=== PATIENT | female | born 1955 | race Two or more races ===

== ENCOUNTER 2020-11-15 09:15 | Outpatient (REF) | payer BC, SELFPAY ==
[2020-11-15 11:16] LABS: Glucose Urine UA NEG (NEG); Leukocyte Esterase Urine 1+ (NEG); Nitrite Urine NEG (NEG); PH 5.5 (5.0-8.0); Specific Gravity - Urine >= 1.030 (1.005-1.025); Urine Blood 1+ (NEG); Urine Ketones NEG (NEG); Urine Protein NEG (NEG-TRACE)
[2020-11-15 11:18] LABS: Appearance Urine HAZY; Color Urine YELLOW
[2020-11-15 11:38] LABS: Mucus Urine 2+ /LPF; Squamous Epithelial Cell Urine 1+ /LPF
[2020-11-15 11:52] LABS: Hematocrit 42.9 % (37-47); Hemoglobin 13.7 g/dl (12.0-16.0); Mean Corpuscular HGB Conc 31.9 g/dl (31.0-35.0); Mean Corpuscular Hemoglobin 29.2 pg (27.0-33.0); Mean Corpuscular Volume 91.5 fL (80-98); Mean Platelet Volume 9.8 fL (9.4-12.3); Platelet Count 269 X10*3/uL (160-400); Red Blood Count 4.69 X10*6/uL (4.20-5.50); Red Cell Distribution Width 12.6 % (11.0-16.0)
[2020-11-15 11:53] LABS: Alanine Aminotransferase 25 U/L (0-31); Albumin Level 4.4 g/dL (3.5-5.0); Alkaline Phosphatase 89 U/L (39-117); Anion Gap 14 (12-20); Aspartate Amino Transferase 18 U/L (5-31); Bilirubin Total 0.8 mg/dL (0.0-1.0); Blood Urea Nitrogen 13 mg/dL (9-16); Calcium 9.3 mg/dL (8.4-10.2); Carbon Dioxide 26 mmol/L (22-29); Chloride 106 mmol/L (96-108); Cholesterol 223 mg/dL; Estimated Glomerular Filt Rate > 60; Glucose Fasting 88 mg/dL (60-99); HDL Cholesterol 71 mg/dL; LDL Cholesterol Calculated 133 mg/dl; Potassium 4.1 mmol/L (3.3-5.1); Sodium 142 mmol/L (135-145); Total Protein 6.9 g/dL (6.5-8.0); Triglycerides 99 mg/dL
[2020-11-15 12:20] LABS: Thyroid Stimulating Hormone 0.79 uIU/mL (0.32-4.0)
== END 2020-11-15 09:16 | disposition home or self-care (01) ==
LOC: HO.HMGCLDS 09:15
PROVIDERS: PCP Internal Medicine; Visit Provider Internal Medicine
DX: Z00.00 Encounter for general adult medical examination without abnormal findings (principal); E78.2 Mixed hyperlipidemia; R79.89 Other specified abnormal findings of blood chemistry
CPT/HCPCS: 36415; 80053; 80061; 81001; 84443; 85027

== ENCOUNTER 2021-09-17 09:17 | Outpatient (REF) | payer BC, SELFPAY ==
[2021-09-17 11:40] LABS: Hematocrit 42.5 % (37.0-47.0); Hemoglobin 13.6 g/dl (12.0-16.0); Mean Corpuscular Hemoglobin 29.6 pg (27.0-33.0); Mean Corpuscular Volume 92.4 fL (80.0-98.0); Mean Platelet Volume 10.2 fL (9.4-12.3); Platelet Count 254 X10*3/uL (160-400); Red Cell Distribution Width 12.4 % (11.0-16.0); White Blood Count 6.4 X10*3/uL (4.8-10.8)
[2021-09-17 12:04] LABS: Alanine Aminotransferase 40 U/L (0-31); Albumin Level 4.3 g/dL (3.5-5.0); Alkaline Phosphatase 84 U/L (39-117); Anion Gap 11 (12-20); Aspartate Amino Transferase 24 U/L (5-31); Bilirubin Total 0.5 mg/dL (0.0-1.0); Blood Urea Nitrogen 13 mg/dL (9-16); Calcium 9.4 mg/dL (8.4-10.2); Carbon Dioxide 29 mmol/L (22-29); Chloride 106 mmol/L (96-108); Cholesterol 201 mg/dL; Estimated Glomerular Filt Rate > 60; Glucose Fasting 95 mg/dL (60-99); HDL Cholesterol 56 mg/dL; LDL Cholesterol Calculated 117 mg/dl; Potassium 4.1 mmol/L (3.3-5.1); Sodium 142 mmol/L (135-145); Total Protein 6.8 g/dL (6.5-8.0); Triglycerides 144 mg/dL
[2021-09-17 12:11] LABS: TSH reflex Free T4 0.89 uIU/mL (0.32-4.0)
== END 2021-09-17 09:18 | disposition home or self-care (01) ==
LOC: HO.HMGCLDS 09:17
PROVIDERS: Visit Provider Internal Medicine
DX: Z00.00 Encounter for general adult medical examination without abnormal findings (principal); E78.5 Hyperlipidemia, unspecified
CPT/HCPCS: 36415; 80053; 80061; 84443; 85027

== ENCOUNTER 2022-04-29 08:32 | Outpatient (REF) | payer BC, SELFPAY ==
[2022-04-29 11:59] LABS: Alanine Aminotransferase 49 U/L (0-31); Albumin Level 4.4 g/dL (3.5-5.0); Alkaline Phosphatase 92 U/L (39-117); Anion Gap 14 (12-20); Aspartate Amino Transferase 31 U/L (5-31); Bilirubin Total 0.6 mg/dL (0.0-1.0); Blood Urea Nitrogen 12 mg/dL (9-16); Calcium 9.7 mg/dL (8.4-10.2); Carbon Dioxide 26 mmol/L (22-29); Chloride 106 mmol/L (96-108); Cholesterol 229 mg/dL; Estimated Glomerular Filt Rate > 60; Glucose Fasting 100 mg/dL (60-99); HDL Cholesterol 60 mg/dL; LDL Cholesterol Calculated 134 mg/dl; Potassium 4.3 mmol/L (3.3-5.1); Sodium 142 mmol/L (135-145); Triglycerides 175 mg/dL
== END 2022-04-29 08:33 | disposition home or self-care (01) ==
LOC: HO.HMGCLDS 08:32
PROVIDERS: PCP Internal Medicine; Visit Provider Internal Medicine
DX: K21.9 Gastro-esophageal reflux disease without esophagitis (principal); E78.5 Hyperlipidemia, unspecified
CPT/HCPCS: 36415; 80053; 80061

== ENCOUNTER 2022-10-26 09:06 | Outpatient (REF) | payer MEDICARE, BC, SELFPAY ==
[2022-10-26 12:00] LABS: Alanine Aminotransferase 40 U/L (0-31); Albumin Level 4.5 g/dL (3.5-5.0); Alkaline Phosphatase 95 U/L (39-117); Anion Gap 12 (12-20); Aspartate Amino Transferase 26 U/L (5-31); Bilirubin Total 0.6 mg/dL (0.0-1.0); Blood Urea Nitrogen 17 mg/dL (9-16); Calcium 9.4 mg/dL (8.4-10.2); Carbon Dioxide 27 mmol/L (22-29); Chloride 108 mmol/L (96-108); Cholesterol 188 mg/dL; Estimated Glomerular Filt Rate > 60; Glucose Fasting 101 mg/dL (60-99); HDL Cholesterol 63 mg/dL; LDL Cholesterol Calculated 103 mg/dl; Potassium 4.6 mmol/L (3.3-5.1); Sodium 142 mmol/L (135-145); Total Protein 6.8 g/dL (6.5-8.0); Triglycerides 113 mg/dL
[2022-10-26 12:17] LABS: TSH reflex Free T4 1.05 uIU/mL (0.32-4.0); Vitamin D 25-OH Total 78.4 ng/mL (>30)
[2022-10-26 12:20] LABS: Estimated Average Glucose 108 mg/dL; Hemoglobin A1c % 5.4 %
== END 2022-10-26 09:07 | disposition home or self-care (01) ==
LOC: HO.HMGCLDS 09:06
PROVIDERS: PCP Internal Medicine; Visit Provider Internal Medicine
DX: R73.9 Hyperglycemia, unspecified (principal); E78.5 Hyperlipidemia, unspecified
CPT/HCPCS: 36415; 80053; 80061; 82306; 83036; 84443

== ENCOUNTER 2023-04-22 08:54 | Outpatient (REF) | payer MEDICARE, SELFPAY ==
[2023-04-22 11:30] LABS: MANUAL DIFF FLAG NO
[2023-04-22 11:47] LABS: Basophils Absolute Auto 0.1 X10*3/uL (0.0-0.2); Eosinophils Absolute Auto 0.2 X10*3/uL (0.0-0.4); Eosinophils Percent Auto 2.7 % (0-4); Hematocrit 43.4 % (37.0-47.0); Hemoglobin 14.2 g/dl (12.0-16.0); Imm Gran Abs Auto 0.01 X10*3/uL (0.00-0.03); Imm Gran Pct Auto 0.1 % (0.0-0.4); Lymphocytes Absolute Auto 3.1 X10*3/uL (1.2-4.9); Lymphocytes Percent Auto 46.3 % (20-40); Mean Corpuscular HGB Conc 32.7 g/dl (31.0-35.0); Mean Corpuscular Hemoglobin 29.3 pg (27.0-33.0); Mean Corpuscular Volume 89.7 fL (80.0-98.0); Monocytes Absolute Auto 0.5 X10*3/uL (0.1-1.2); Monocytes Percent Auto 8.1 % (2-11); Neutrophils Absolute Auto 2.8 x10*3/uL (2.0-8.3); Neutrophils Percent Auto 41.8 % (45-73); Platelet Count 264 X10*3/uL (160-400); Red Blood Count 4.84 X10*6/uL (4.20-5.50); Red Cell Distribution Width 12.7 % (11.0-16.0); White Blood Count 6.7 X10*3/uL (4.8-10.8)
[2023-04-22 12:23] LABS: Alanine Aminotransferase 61 U/L (0-31); Albumin Level 4.2 g/dL (3.5-5.0); Alkaline Phosphatase 90 U/L (39-117); Anion Gap 15 (12-20); Aspartate Amino Transferase 32 U/L (5-31); Bilirubin Total 0.4 mg/dL (0.0-1.0); Blood Urea Nitrogen 18 mg/dL (9-16); Calcium 9.8 mg/dL (8.4-10.2); Carbon Dioxide 24 mmol/L (22-29); Chloride 106 mmol/L (96-108); Estimated Glomerular Filt Rate > 60; Glucose Fasting 97 mg/dL (60-99); Potassium 4.3 mmol/L (3.3-5.1); Sodium 141 mmol/L (135-145); Total Protein 7.1 g/dL (6.5-8.0)
[2023-04-22 12:28] LABS: TSH reflex Free T4 1.05 uIU/mL (0.32-4.0)
[2023-04-22 12:50] LABS: Estimated Average Glucose 105 mg/dL; Hemoglobin A1c % 5.3 % (<6.0)
== END 2023-04-22 08:55 | disposition home or self-care (01) ==
LOC: HO.HMGCLDS 08:54
PROVIDERS: PCP Internal Medicine; Visit Provider Internal Medicine
DX: R73.9 Hyperglycemia, unspecified (principal); F41.9 Anxiety disorder, unspecified; F32.9 Major depressive disorder, single episode, unspecified; E78.5 Hyperlipidemia, unspecified; K21.9 Gastro-esophageal reflux disease without esophagitis
CPT/HCPCS: 36415; 80053; 83036; 84443; 85025

== ENCOUNTER 2023-05-03 11:14 | Outpatient (AMB) | payer MEDICARE, SELFPAY ==
[2023-05-03 11:39] VITALS: BP 122/72; PULSE 65; O2SAT 99; BMI 24.5
--- NOTE | 2023-05-03 11:39 | A.OFFPC_ITS ---
Vital Signs 05/03/23 11:39 Height 5 ft 4 in Weight 143 lb BMI 24.5 BP 122/72 Blood Pressure Location Lt brachial Position Sitting Pulse 65 Pulse Source Pulse Oximeter Pulse Oximetry (%) 99 Oxygen Delivery Method Room Air Intake Visit Reasons: 6 month Follow up Hyperlipidemia Intake Note: Pt is here today for her 6mo. f/u Allergies No Known Allergies Allergy (Verified 05/03/23 11:39) Medication List - Last Reconciled 05/03/23 by Esther Ashley MD ezetimibe-simvastatin 10-40 mg 1 tab PO DAILY fluoxetine 10 mg PO DAILY omeprazole 20 mg PO DAILY valacyclovir 2,000 mg (2 x 1 gram) PO Q12H Tobacco use date assessed: 05/03/23 Fall risk assessment: No Falls in past year Last assessed Fall Risk: 05/03/23 Dental Screening Dental Screen Date: 05/03/23 Did you have a dental visit in the last 12 months?: Yes Did you have a dental problem in the last 6 months where you did not have access to dental care?: No Was dental information given to patient?: Patient has dentist HPI 6 month Follow up Hyperlipidemia HPI Details Patient presents for follow-up of hyperlipidemia. She reports episodes of nausea lightheadedness with physical exertion. She denies chest pain palpitations diaphoresis. [facility] Medical History Annual physical exam Anxiety and depression Chronic GERD Colon cancer screening Hyperlipidemia Surgical History H/O colonoscopy Family History Father Stomach cancer Mother Diabetes Hypertension Bone cancer Social History Housing: House Patient Tobacco Use Status: Never used Tobacco e-Cigarette/Vaping Use: Never Used Current occupational status: employed Cognitive needs: No Hearing needs: No Vision needs: Yes Questionnaire Thrive Questionnaire Date Thrive assessed: 11/02/22 AUDIT C Alcohol Use Questionnaire (AUDIT-C) 1. How often do you have a drink containing alcohol?: Never Total Score: 0 ANUP-7 AMB Questionnaire ANUP-7 Date ANUP - 7 assessed: 11/02/22 Source: Developed by Drs. Satya Parsons, Katelyn Salgado, Jeremias Lux and colleagues, with an educational yasmany from [employer]. Review of Systems Const All systems reviewed & are unremarkable except as noted in HPI and below Reports no additional complaints Eyes Reports no additional complaints ENT Reports no additional complaints Card Reports no additional complaints Resp Reports no additional complaints GI Reports no additional complaints Reports no additional complaints Physical exam (Primary Care) Vital Signs: Last Vital Signs Pulse 65 05/03/23 11:39 BP 122/72 05/03/23 11:39 Pulse Ox 99 05/03/23 11:39 Oxygen Delivery Method Room Air 05/03/23 11:39 BMI result Body Mass Index 24.5 Tobacco/Smoking Status: Tobacco use Status Tobacco use date assessed 05/03/23 05/03/23 11:42 Patient Tobacco Use Status Never used Tobacco 05/03/23 11:42 e-Cigarette/Vaping Use Never Used 05/03/23 11:42 Thrive Assessment: Date of Thrive Assessment Date Thrive assessed 11/02/22 05/03/23 11:42 Const General: no acute distress HENMT Head: Yes normal to inspection Throat: Yes posterior oropharynx normal Eyes General: appearance normal, both eyes and all related structures Neck Neck: Yes no lymphadenopathy and Yes supple Resp Effort & Inspection: normal respiratory effort Auscultation: clear to auscultation bilaterally Cardio Rhythm: regular rhythm Heart sounds: S1 normal heart sound present and S2 normal heart sound present GI Inspection: Yes normal to inspection Palpation (GI): Soft to palpation Percussion: Yes normal to percussion Auscultation: normal bowel sounds Assessment and Plan Assessment & Plan (1) Anginal equivalent: Code(s): I20.89 - Other forms of angina pectoris Plan: EKG showed NSR, no acute ST-T changes, schedule stress test to evaluate for ischemia (2) Hyperlipidemia: Code(s): E78.5 - Hyperlipidemia, unspecified Plan: Continue current medications (3) Anxiety and depression: Code(s): F41.9 - Anxiety disorder, unspecified; F32.9 - Major depressive disorder, single episode, unspecified Plan: Continue fluoxetine Orders: Orders CA stress test Today I20.89 - Other forms of angina pectoris NM cardiolite stress test Today E78.5 - Hyperlipidemia, unspecified, I20.89 - Other forms of angina pectoris Coding Level of Care Code Est Pt Level 4 (94785) Diagnoses Anginal equivalent I20.89 Hyperlipidemia E78.5 Anxiety and depression F41.9; F32.9
== END 2023-05-03 12:58 | disposition home or self-care (01) ==
PROVIDERS: Visit Provider Internal Medicine
DX: I20.89 Other forms of angina pectoris (principal); E78.5 Hyperlipidemia, unspecified; F41.9 Anxiety disorder, unspecified; F32.9 Major depressive disorder, single episode, unspecified
CPT/HCPCS: 93000; 99214

== ENCOUNTER 2023-10-22 09:11 | Outpatient (REF) | payer MEDICARE, SELFPAY ==
[2023-10-22 10:38] LABS: MANUAL DIFF FLAG NO
[2023-10-22 10:48] LABS: Basophils Absolute Auto 0.1 X10*3/uL (0.0-0.2); Basophils Percent Auto 0.8 % (0-2); Eosinophils Absolute Auto 0.2 X10*3/uL (0.0-0.4); Eosinophils Percent Auto 2.7 % (0-4); Hemoglobin 14.3 g/dl (12.0-16.0); Imm Gran Abs Auto 0.02 X10*3/uL (0.00-0.03); Imm Gran Pct Auto 0.3 % (0.0-0.4); Lymphocytes Absolute Auto 3.4 X10*3/uL (1.2-4.9); Lymphocytes Percent Auto 43.6 % (20-40); Mean Corpuscular HGB Conc 33.3 g/dl (31.0-35.0); Mean Corpuscular Hemoglobin 29.5 pg (27.0-33.0); Mean Corpuscular Volume 88.8 fL (80.0-98.0); Mean Platelet Volume 10.2 fL (9.4-12.3); Monocytes Absolute Auto 0.5 X10*3/uL (0.1-1.2); Monocytes Percent Auto 6.1 % (2-11); Neutrophils Absolute Auto 3.7 x10*3/uL (2.0-8.3); Neutrophils Percent Auto 46.5 % (45-73); Platelet Count 266 X10*3/uL (160-400); Red Blood Count 4.84 X10*6/uL (4.20-5.50); Red Cell Distribution Width 12.6 % (11.0-16.0); White Blood Count 7.8 X10*3/uL (4.8-10.8)
[2023-10-22 11:31] LABS: Alanine Aminotransferase 63 U/L (0-31); Albumin Level 4.2 g/dL (3.5-5.0); Alkaline Phosphatase 95 U/L (39-117); Anion Gap 12 (12-20); Aspartate Amino Transferase 40 U/L (5-31); Bilirubin Total 0.4 mg/dL (0.0-1.0); Blood Urea Nitrogen 14 mg/dL (9-16); Calcium 9.5 mg/dL (8.4-10.2); Carbon Dioxide 25 mmol/L (22-29); Chloride 109 mmol/L (96-108); Cholesterol 170 mg/dL (<200); Estimated Glomerular Filt Rate > 60; Glucose Fasting 104 mg/dL (60-99); HDL Cholesterol 62 mg/dL (>40); LDL Cholesterol Calculated 88 mg/dL (<100); Potassium 4.1 mmol/L (3.3-5.1); Sodium 142 mmol/L (135-145); Total Protein 7.1 g/dL (6.5-8.0); Triglycerides 102 mg/dL (<150)
== END 2023-10-22 09:12 | disposition home or self-care (01) ==
LOC: HO.HMGCLDS 09:11
PROVIDERS: PCP Internal Medicine; Visit Provider Internal Medicine
DX: Z00.00 Encounter for general adult medical examination without abnormal findings (principal); F32.9 Major depressive disorder, single episode, unspecified; F41.9 Anxiety disorder, unspecified; R73.9 Hyperglycemia, unspecified; E78.5 Hyperlipidemia, unspecified
CPT/HCPCS: 36415; 80053; 80061; 85025

== ENCOUNTER 2023-11-02 10:39 | Outpatient (AMB) | payer MEDICARE, SELFPAY ==
--- NOTE | 2023-11-02 10:47 | A.OFFPC_ITS ---
Vital Signs 11/02/23 10:50 Height 5 ft 4 in Weight 144 lb BMI 24.7 BP 130/74 Blood Pressure Location Lt brachial Position Sitting Pulse 64 Pulse Source Pulse Oximeter Pulse Oximetry (%) 100 Oxygen Delivery Method Room Air Intake Visit Reasons: 6 month f/u Intake Note: Pt is here today for 6 months follow up visit on labs. Allergies No Known Allergies Allergy (Verified 11/02/23 10:57) Medication List - Last Reconciled 11/02/23 by Esther Ashley MD ezetimibe-simvastatin 10-40 mg 1 tab PO DAILY fluoxetine 10 mg PO DAILY omeprazole 20 mg PO DAILY valacyclovir 2,000 mg (2 x 1 gram) PO Q12H Tobacco use date assessed: 11/02/23 Fall risk assessment: No Falls in past year Last assessed Fall Risk: 11/02/23 Dental Screening Dental Screen Date: 11/02/23 Did you have a dental visit in the last 12 months?: Yes Did you have a dental problem in the last 6 months where you did not have access to dental care?: No Was dental information given to patient?: Patient has dentist HPI 6 month f/u HPI Details Pt presents for follow-up on hyperlipidemia chronic GERD stable on current medications. [facility] Medical History Colon cancer screening Annual physical exam Chronic GERD Anxiety and depression Hyperlipidemia Surgical History H/O colonoscopy Family History Father Stomach cancer Mother Diabetes Hypertension Bone cancer Social History Housing: House Patient Tobacco Use Status: Never used Tobacco e-Cigarette/Vaping Use: Never Used service: No Current occupational status: employed Cognitive needs: No Hearing needs: No Vision needs: Yes Questionnaire PHQ-9 Over the last 2 weeks, how often have you been bothered by any of the following problems? 1. Little interest or pleasure in doing things: not at all 2. Feeling down, depressed, or hopeless: not at all 3. Trouble falling or staying asleep, or sleeping too much: not at all 4. Feeling tired or having little energy: not at all 5. Poor appetite or overeating: not at all 6. Feeling bad about yourself - or that you are a failure or have let yourself or your family down: not at all 7. Trouble concentrating on things, such as reading the newspaper or watching television: not at all 8. Moving or speaking so slowly that other people could have noticed. Or the opposite - being so fidgety or restless that you have been moving around a lot more than usual: not at all 9. Thoughts that you would be better off or of hurting yourself in some way: not at all Total score: 0 Depression Screening Interpretation: Negative Depression Screening Done: Yes Source: Developed by Drs. Satya Parsons, Jeremias Sosa and colleagues, with an educational yasmany from [employer]. Thrive Questionnaire Date Thrive assessed: 11/02/23 I am a: Patient What is your living situation today?: I have a steady place to live THRIVE Score: 0 AUDIT C Alcohol Use Questionnaire (AUDIT-C) 1. How often do you have a drink containing alcohol?: Never 3. How often do you have six or more drinks on one occasion?: Never Total Score: 0 ANUP-7 AMB Questionnaire ANUP-7 Date ANUP - 7 assessed: 11/02/23 Feeling nervous, anxious, or on edge: 0 = Not at all Not being able to stop or control worryin = Not at all Worrying too much about different things: 0 = Not at all Trouble relaxin = Not at all Being so restless that it is hard to sit still: 0 = Not at all Becoming easily annoyed or irritable: 0 = Not at all Feeling afraid as if something awful might happen: 0 = Not at all Total ANUP-7 score (0-4 normal; 5-9 mild; 10-14 moderate; 15-21 severe): 0 Source: Developed by Drs. Satya Parsons, Jeremias Sosa and colleagues, with an educational yasmany from [employer]. Review of Systems Const All systems reviewed & are unremarkable except as noted in HPI and below Eyes Reports no additional complaints ENT Reports no additional complaints Card Reports no additional complaints GI Reports no additional complaints Reports no additional complaints Physical exam (Primary Care) Vital Signs: Last Vital Signs Pulse 64 11/02/23 10:50 BP 130/74 11/02/23 10:50 Pulse Ox 100 11/02/23 10:50 Oxygen Delivery Method Room Air 11/02/23 10:50 BMI result Body Mass Index 24.7 Tobacco/Smoking Status: Tobacco use Status Tobacco use date assessed 11/02/23 11/02/23 10:57 Patient Tobacco Use Status Never used Tobacco 11/02/23 10:57 e-Cigarette/Vaping Use Never Used 11/02/23 10:47 PHQ-9: PHQ-9 Score PHQ-9: Total score 0 11/02/23 11:10 Depression Screening Interpretation: Negative Thrive Assessment: Date of Thrive Assessment Date Thrive assessed 11/02/23 11/02/23 11:01 Const General: no acute distress HENMT Face and sinus: Yes normal facial exam Neck Neck: Yes no lymphadenopathy and Yes supple Resp Effort & Inspection: normal respiratory effort Auscultation: clear to auscultation bilaterally Cardio Rhythm: regular rhythm Heart sounds: S1 normal heart sound present and S2 normal heart sound present GI Inspection: Yes normal to inspection Palpation (GI): Soft to palpation Percussion: Yes normal to percussion Auscultation: normal bowel sounds Assessment and Plan Assessment & Plan (1) Elevated LFTs: Code(s): R79.89 - Other specified abnormal findings of blood chemistry Plan: Obtain liver ultrasound to evaluate for fatty liver. Patient was advised to avoid alcohol NSAIDs simple carbohydrates and repeat LFTs (2) Anxiety and depression: Code(s): F41.9 - Anxiety disorder, unspecified; F32.9 - Major depressive disorder, single episode, unspecified Plan: Patient has been off fluoxetine and doing well (3) Annual physical exam: Code(s): Z00.00 - Encounter for general adult medical examination without abnormal findings (4) Hyperglycemia: Code(s): R73.9 - Hyperglycemia, unspecified Plan: Continue ADA diet (5) Hyperlipidemia: Code(s): E78.5 - Hyperlipidemia, unspecified Plan: Continue current medications, follow-up in 6 months with a fasting labs before Orders: Orders US abdomen limited Today R79.89 - Other specified abnormal findings of blood chemistry XR DEXA axial skeleton Today Z78.0 - Asymptomatic menopausal state Complete Blood Count Auto Diff 6 Months F32.9 - Major depressive disorder, single episode, unspecified, F41.9 - Anxiety disorder, unspecified, R73.9 - Hyperglycemia, unspecified, Z00.00 - Encounter for general adult medical examination without abnormal findings Comprehensive [place]. Panel Fast 6 Months F32.9 - Major depressive disorder, single episode, unspecified, F41.9 - Anxiety disorder, unspecified, R73.9 - Hyperglycemia, unspecified, Z00.00 - Encounter for general adult medical examination without abnormal findings Lipid Panel 6 Months F32.9 - Major depressive disorder, single episode, unspecified, F41.9 - Anxiety disorder, unspecified, R73.9 - Hyperglycemia, unspecified, Z00.00 - Encounter for general adult medical examination without abnormal findings Hepatitis B,C Profile 6 Months F32.9 - Major depressive disorder, single episode, unspecified, F41.9 - Anxiety disorder, unspecified, R73.9 - Hyperglycemia, unspecified, Z00.00 - Encounter for general adult medical examination without abnormal findings Coding Level of Care Code Est Pt Level 4 (49450) Diagnoses Elevated LFTs R79.89 Anxiety and depression F41.9; F32.9 Annual physical exam Z00.00 Hyperglycemia R73.9 Hyperlipidemia E78.5
[2023-11-02 10:50] VITALS: BP 130/74; PULSE 64; O2SAT 100; BMI 24.7
== END 2023-11-02 14:02 | disposition home or self-care (01) ==
PROVIDERS: PCP Internal Medicine; Visit Provider Internal Medicine
DX: R79.89 Other specified abnormal findings of blood chemistry (principal); F41.9 Anxiety disorder, unspecified; F32.9 Major depressive disorder, single episode, unspecified; R73.9 Hyperglycemia, unspecified; E78.5 Hyperlipidemia, unspecified
CPT/HCPCS: 99214

== ENCOUNTER 2023-11-19 07:54 | Outpatient (REF) | payer MEDICARE, SELFPAY ==
--- NOTE | ~2023-11-19 | MM_ITS ---
EXAMINATION: BONE DENSITOMETRY CLINICAL INDICATION: Asymptomatic menopausal state. COMPARISON: This is the patient's baseline examination. TECHNIQUE: Using a Xcovery DXA System (software version: 13.1) manufactured by [employer], dual-energy x-ray absorptiometry was performed of the lumbar spine and left hip. The images are of good technical quality. Summary results are attached. FINDINGS: LEFT FEMUR, NECK: BMD 0.915 g/cm2, Z-score 0.7, T-score -0.9, normal. LEFT FEMUR, TOTAL: BMD 1.076 g/cm2, Z-score 1.9, T-score 0.5, normal. AP SPINE L1-L4: BMD 1.197 g/cm2, Z-score 1.9, T-score 0.1, normal. IDENTIFIED RISK FACTORS: Menopause. HISTORY OF FRACTURE: None listed. MEDICATIONS: Vitamin D. MM/XR DEXA axial skeleton IMPRESSION: 1. DIAGNOSIS: Normal bone density based on the lowest T-score value of -0.9 in the femoral neck applying World Health Organization criteria. 2. 10-YEAR FRACTURE RISK PREDICTION, FRAX: According to the guidelines, FRAX calculation should only be performed on patients in the osteopenia bone density category. Therefore, FRAX was not performed on this patient.? 3. Treatment Recommendations: NOF guidelines recommend consideration for treatment in postmenopausal women and men age 50 and older presenting with the following: -A hip or vertebral (clinical or morphometric) fracture. -T-score less than or equal to -2.5 at the femoral neck or spine after appropriate evaluation to exclude secondary causes. -Low bone mass at the hip or spine and a 10-year fracture probability by FRAX of greater than or equal to 3% for hip fracture or greater than or equal to 20% for major osteoporotic fracture based on the [place] adapted WHO algorithm. 4. Other Recommendations: All treatment decisions require clinical judgment and consideration of individual patient factors, including patient preferences, comorbidities, previous drug use, risk factors not captured in the FRAX model (e.g. frailty, falls, vitamin D deficiency, increased bone turnover, interval significant decline in bone density) and possible under or overestimation of fracture risk by FRAX. FUTURE SCAN RECOMMENDATION: People with diagnosed cases of osteoporosis or at high risk for fracture should have regular bone mineral density tests. For patients eligible for Medicare, routine testing is allowed once every 2 years. The testing frequency can be increased to one year for patients who have rapidly progressing disease, those who are receiving or discontinuing medical therapy to restore bone mass, or have additional risk factors.
--- NOTE | ~2023-11-19 | US_ITS ---
EXAMINATION: US ABDOMEN LIMITED CLINICAL INFORMATION: Others specified abnormal findings of blood chemistry. COMPARISON: None available. TECHNIQUE: Real-time imaging of the right upper quadrant abdominal viscera. FINDINGS: PANCREAS: Normal. LIVER: The liver is normal in size. The liver contour is normal. Markedly increased hepatic echogenicity which can be seen in the setting of hepatic steatosis or underlying liver disease. 1.1 cm left hepatic lobe simple cyst. There is no intrahepatic biliary duct dilatation seen. GALLBLADDER: Normal. The gallbladder is physiologically distended without evidence of stones, sludge, polyps, wall thickening or pericholecystic fluid. COMMON BILE DUCT: Normal in caliber measuring 0.3 cm in diameter. RIGHT KIDNEY: Normal. No hydronephrosis. No renal calculi or focal parenchymal lesions. The kidney measures 10.7 cm in maximum dimension. FREE FLUID: None. US/US abdomen limited IMPRESSION: Markedly increased hepatic echogenicity which can be seen in the setting of hepatic steatosis or underlying liver disease.
== END 2023-11-19 07:55 | disposition home or self-care (01) ==
LOC: HO.US 07:54
PROVIDERS: PCP Internal Medicine; Visit Provider Internal Medicine
DX: Z13.820 Encounter for screening for osteoporosis (principal); R79.89 Other specified abnormal findings of blood chemistry; Z78.0 Asymptomatic menopausal state
CPT/HCPCS: 76705; 77080

== ENCOUNTER 2023-11-30 06:43 | Outpatient (REF) | payer MEDICARE, SELFPAY ==
[2023-11-30 11:05] LABS: Iron 79 mcg/dL (30-160); Percent Iron Saturation 26 % (15-50); Total Iron Binding Capacity 301 mcg/dL (228-428); Unsaturated Iron Binding 222 ug/dL
[2023-11-30 11:27] LABS: HBS Num1 0.37 mIU/mL (0-7.99); HBc Num1 0.11 S/CO (0.00-0.79); HBsAGNum1 0.49 S/CO (0.00-0.99); Hepatitis A Antibody IgM 0.28 Index (0-0.79); Hepatitis B Core Antibody Nonreactive (Nonreactive); Hepatitis B Surface Antigen Negative (Negative); ~Hepatitis A Antibody IgM Nonreactive (Nonreactive); ~Hepatitis B Surface Antibody NONREACTIVE (Nonreactive); ~Hepatitis C Antibody Nonreactive (Nonreactive)
[2023-12-01 18:13] LABS: Ceruloplasmin 32 mg/dL (14-48)
[2023-12-02 16:14] LABS: Anti Nuclear Antibody Screen NEGATIVE (NEGATIVE)
[2023-12-03 10:49] LABS: Mitochondrial Antibodies NEGATIVE (NEGATIVE)
[2023-12-05 12:19] LABS: Liver Kidney Microsomal Ab <=20.0 U (<=20.0)
== END 2023-11-30 06:44 | disposition home or self-care (01) ==
LOC: HO.HMGCLDS 06:43
PROVIDERS: PCP Internal Medicine; Visit Provider Internal Medicine
DX: R79.89 Other specified abnormal findings of blood chemistry (principal)
CPT/HCPCS: 36415; 82390; 83540; 86038; 86376; 86381; 86704; 86706; 86709; 86803; 87340

== ENCOUNTER 2024-04-26 09:05 | Outpatient (REF) | payer MEDICARE, SELFPAY ==
[2024-04-26 10:14] LABS: MANUAL DIFF FLAG NO
[2024-04-26 10:21] LABS: Basophils Absolute Auto 0.1 X10*3/uL (0.0-0.2); Basophils Percent Auto 0.9 % (0-2); Eosinophils Absolute Auto 0.3 X10*3/uL (0.0-0.4); Eosinophils Percent Auto 3.7 % (0-4); Hematocrit 42.7 % (37.0-47.0); Hemoglobin 14.3 g/dl (12.0-16.0); Imm Gran Abs Auto 0.01 X10*3/uL (0.00-0.03); Imm Gran Pct Auto 0.1 % (0.0-0.4); Lymphocytes Absolute Auto 3.8 X10*3/uL (1.2-4.9); Lymphocytes Percent Auto 47.6 % (20-40); Mean Corpuscular HGB Conc 33.5 g/dl (31.0-35.0); Mean Corpuscular Hemoglobin 29.9 pg (27.0-33.0); Mean Corpuscular Volume 89.1 fL (80.0-98.0); Mean Platelet Volume 9.8 fL (9.4-12.3); Monocytes Absolute Auto 0.6 X10*3/uL (0.1-1.2); Neutrophils Absolute Auto 3.2 x10*3/uL (2.0-8.3); Neutrophils Percent Auto 40.7 % (45-73); Platelet Count 270 X10*3/uL (160-400); Red Blood Count 4.79 X10*6/uL (4.20-5.50); Red Cell Distribution Width 12.4 % (11.0-16.0); White Blood Count 7.9 X10*3/uL (4.8-10.8)
[2024-04-26 11:18] LABS: Alanine Aminotransferase 37 U/L (0-31); Albumin Level 4.2 g/dL (3.5-5.0); Alkaline Phosphatase 112 U/L (39-117); Anion Gap 10 (12-20); Aspartate Amino Transferase 20 U/L (5-31); Bilirubin Total 0.4 mg/dL (0.0-1.0); Blood Urea Nitrogen 14 mg/dL (9-16); Calcium 9.6 mg/dL (8.4-10.2); Carbon Dioxide 27 mmol/L (22-29); Chloride 109 mmol/L (96-108); Cholesterol 209 mg/dL (<200); Estimated Glomerular Filt Rate > 60; Glucose Fasting 99 mg/dL (60-99); HDL Cholesterol 54 mg/dL (>40); LDL Cholesterol Calculated 125 mg/dL (<100); Potassium 3.9 mmol/L (3.3-5.1); Sodium 142 mmol/L (135-145); Triglycerides 151 mg/dL (<150)
== END 2024-04-26 09:06 | disposition home or self-care (01) ==
LOC: HO.HMGCLDS 09:05
PROVIDERS: PCP Internal Medicine; Visit Provider Internal Medicine
DX: Z00.00 Encounter for general adult medical examination without abnormal findings (principal); F32.9 Major depressive disorder, single episode, unspecified; F41.9 Anxiety disorder, unspecified; R73.9 Hyperglycemia, unspecified
CPT/HCPCS: 36415; 80053; 80061; 85025

== ENCOUNTER 2024-05-03 07:22 | Outpatient (REF) | payer MEDICARE, SELFPAY ==
--- NOTE | ~2024-05-03 | MM_ITS ---
EXAMINATION: MM SCREENING DIGITAL BREAST TOMOSYNTHESIS, BILATERAL CLINICAL INFORMATION: Screening. Asymptomatic. COMPARISON: Mammography: Comparison is made with available priors TECHNIQUE: Digital breast mammography with tomosynthesis is performed in both the craniocaudal and mediolateral oblique views along with computer-aided detection (CAD). FINDINGS: There are scattered areas of fibroglandular density (ACR BI-RADS breast composition Category b). There are no significant masses, abnormal calcifications, or other abnormalities. MM/MM tomosynthesis screening BI IMPRESSION: No mammographic evidence of malignancy. ASSESSMENT: BI-RADS BI-RADS 1 - Negative RECOMMENDATION: Routine annual mammography screening. 1 year F/U This examination should not preclude the clinical evaluation of a suspicious palpable abnormality. This patient's information was entered into a reminder system with a target due date for their next mammogram. Electronically signed by: Maria Alejandra Mcknight DO 05/15/2024 03:49 PM JOY
== END 2024-05-03 07:23 | disposition home or self-care (01) ==
LOC: HO.MAMMO 07:22
PROVIDERS: PCP Internal Medicine; Visit Provider Internal Medicine
DX: Z12.31 Encounter for screening mammogram for malignant neoplasm of breast (principal)
CPT/HCPCS: 77063; 77067

== ENCOUNTER → 2024-05-03 07:45 | Outpatient (BNV) | payer MEDICARE, SELFPAY | PROVIDERS: PCP Internal Medicine; Visit Provider Internal Medicine | DX: Z12.31 Encounter for screening mammogram for malignant neoplasm of breast (principal) | CPT/HCPCS: 77063; 77067 ==

== ENCOUNTER 2024-05-10 10:08 | Outpatient (AMB) | payer MEDICARE, SELFPAY ==
--- NOTE | 2024-05-10 10:11 | MHC.PC.OV ---
Vital Signs 05/10/24 10:12 Height 5 ft 4 in Weight 143 lb BMI 24.5 BP 132/70 Blood Pressure Location Lt brachial Position Sitting Pulse 68 Pulse Source Pulse Oximeter Pulse Oximetry (%) 98 Oxygen Delivery Method Room Air Intake Visit Reasons: Annual PE/Overdue 11/02 Intake Note: Pt is here today for PE. Pt states that she has been having dizziness. Pt also states that she has been having pain in her middle finger L hand. Allergies No Known Allergies Allergy (Verified 05/10/24 10:19) Medication List - Last Reconciled 05/10/24 by Esther Ashley MD ezetimibe-simvastatin 10-40 mg 1 tab PO DAILY fluoxetine 10 mg PO DAILY omeprazole 20 mg PO DAILY valacyclovir 2,000 mg (2 x 1 gram) PO Q12H Tobacco use date assessed: 05/10/24 Fall risk assessment: No Falls in past year Last assessed Fall Risk: 05/10/24 Dental Screening Dental Screen Date: 11/02/23 HPI Annual PE/Overdue 11/02 HPI Details Patient presents for physical. She reports episodes of feeling lightheaded with chest tightness with physical activity like walking for 2 months. She denies symptoms at rest. Patient reports elevated blood pressure at home up to 170/90 on occasions. She reports worsening anxiety since she stopped taking fluoxetine. [facility] Medical History Colon cancer screening Annual physical exam Chronic GERD Anxiety and depression Hyperlipidemia Surgical History H/O colonoscopy Family History Father Stomach cancer Mother Diabetes Hypertension Bone cancer Social History Housing: House Patient Tobacco Use Status: Never used Tobacco e-Cigarette/Vaping Use: Never Used service: No Current occupational status: employed Cognitive needs: No Hearing needs: No Vision needs: Yes Questionnaire PHQ-9 Over the last 2 weeks, how often have you been bothered by any of the following problems? 1. Little interest or pleasure in doing things: not at all 2. Feeling down, depressed, or hopeless: not at all 3. Trouble falling or staying asleep, or sleeping too much: not at all 4. Feeling tired or having little energy: not at all 5. Poor appetite or overeating: not at all 6. Feeling bad about yourself - or that you are a failure or have let yourself or your family down: not at all 7. Trouble concentrating on things, such as reading the newspaper or watching television: not at all 8. Moving or speaking so slowly that other people could have noticed. Or the opposite - being so fidgety or restless that you have been moving around a lot more than usual: not at all 9. Thoughts that you would be better off or of hurting yourself in some way: not at all Total score: 0 Depression Screening Interpretation: Negative Depression Screening Done: Yes 03631 - PHQ-9 Billing: Yes Source: Developed by Drs. Satya Parsons, Katelyn Salgado, Jeremias Lux and colleagues, with an educational yasmany from [employer]. Thrive Questionnaire Date Thrive assessed: 05/10/24 I am a: Patient What is your living situation today?: I have a steady place to live Within the past 12 months, did the food you bought not last and you didn't have the money to get more?: I choose not to answer this question Within the past 12 months, did you worry whether your food would run out before you got money to buy more?: I choose not to answer this question Do you have trouble paying for medicines?: I choose not to answer this question Do you have trouble getting transportation to medical appointments?: No Do you have trouble paying your heating and electricity bill?: No Do you have trouble taking care of your child, family member or friend?: No Do you have trouble with day-to-day activities such as bathing, preparing meals, shopping, managing finances, etc.?: No Are you currently unemployed and looking for a job?: No Are you interested in more education?: No Please select the resources that you would like help with: None Currently or been in a relationship where the following occur: No concerns reported THRIVE Score: 0 AUDIT C Alcohol Use Questionnaire (AUDIT-C) 1. How often do you have a drink containing alcohol?: Monthly or less 2. How many drinks containing alcohol do you have on a typical day when you are drinking?: 1 or 2 3. How often do you have six or more drinks on one occasion?: Never Total Score: 1 ANUP-7 AMB Questionnaire ANUP-7 Date ANUP - 7 assessed: 05/10/24 Feeling nervous, anxious, or on edge: 1 = Several days Not being able to stop or control worryin = Not at all Worrying too much about different things: 0 = Not at all Trouble relaxin = Not at all Being so restless that it is hard to sit still: 0 = Not at all Becoming easily annoyed or irritable: 0 = Not at all Feeling afraid as if something awful might happen: 0 = Not at all Total ANUP-7 score (0-4 normal; 5-9 mild; 10-14 moderate; 15-21 severe): 1 Source: Developed by Drs. Satya Parsons, Katelyn Salgado, Jeremias Lux and colleagues, with an educational yasmany from [employer]. ANUP-7 Assessment Billing ANUP-7 Assessment Tool: ANUP-7 Assessment 17078 Review of Systems Const All systems reviewed & are unremarkable except as noted in HPI and below Eyes Reports no additional complaints ENT Reports no additional complaints Resp Reports no additional complaints GI Reports no additional complaints Reports no additional complaints Physical exam (Primary Care) Vital Signs: Last Vital Signs Pulse 68 05/10/24 10:12 BP 132/70 05/10/24 10:12 Pulse Ox 98 05/10/24 10:12 Oxygen Delivery Method Room Air 05/10/24 10:12 BMI result Body Mass Index 24.5 Tobacco/Smoking Status: Tobacco use Status Tobacco use date assessed 05/10/24 05/10/24 10:16 Patient Tobacco Use Status Never used Tobacco 05/10/24 10:16 e-Cigarette/Vaping Use Never Used 05/10/24 10:11 PHQ-9: PHQ-9 Score PHQ-9: Total score 0 05/10/24 10:23 Depression Screening Interpretation: Negative Thrive Assessment: Date of Thrive Assessment Date Thrive assessed 05/10/24 05/10/24 10:23 Currently or been in a relationship where the following occur: No concerns reported Const General: no acute distress HENMT Head: Yes normal to inspection Ears: hearing grossly normal bilaterally General nose exam: Normal external nose present Eyes General: appearance normal, both eyes and all related structures Neck Neck: Yes no lymphadenopathy and Yes supple Resp Effort & Inspection: normal respiratory effort Auscultation: clear to auscultation bilaterally Cardio Rhythm: regular rhythm Heart sounds: S1 normal heart sound present and S2 normal heart sound present GI Inspection: Yes normal to inspection Palpation (GI): Soft to palpation Percussion: Yes normal to percussion Auscultation: normal bowel sounds Coding Level of Care Code Est Pt Prev Care >65y(56223) Diagnoses Angina at rest I20.89 Trigger finger, left middle finger M65.332 Anxiety and depression F41.9; F32.9 Hyperlipidemia E78.5 Annual physical exam Z00.00 HTN (hypertension) I10 Additional Codes ANUP-7 Assessment Billing - ANUP-7 Assessment Tool: ANUP-7 Assessment 11251 ([id number]) Assessment & Plan Assessment & Plan (1) Angina at rest: Code(s): I20.89 - Other forms of angina pectoris Category: Medical Plan: EKG showed normal sinus rhythm, heart rate of 61, nonspecific T-wave changes at V 3 through V 6. Obtain nuclear stress test to evaluate for angina (2) Trigger finger, left middle finger: Comment: CHRONIC LEFT MIDDLE FINGER Code(s): M65.332 - Trigger finger, left middle finger Category: Medical Plan: Referred to hand surgeon (3) Anxiety and depression: Code(s): F41.9 - Anxiety disorder, unspecified; F32.9 - Major depressive disorder, single episode, unspecified Category: Medical Plan: Restart fluoxetine (4) Hyperlipidemia: Code(s): E78.5 - Hyperlipidemia, unspecified Category: Medical Plan: Continue current medications (5) Annual physical exam: Code(s): Z00.00 - Encounter for general adult medical examination without abnormal findings Category: Medical Plan: Well-balanced diet regular physical activity discussed with the patient she is up-to-date with mammogram and colonoscopy follow-up in 1 month (6) HTN (hypertension): Code(s): I10 - Essential (primary) hypertension Category: Medical Plan: Start 5 mg of lisinopril follow-up in 1 month Orders: Orders CA stress test Today I20.89 - Other forms of angina pectoris NM cardiolite stress test Today I20.89 - Other forms of angina pectoris AMB EKG-In Office Today E78.5 - Hyperlipidemia, unspecified, I20.89 - Other forms of angina pectoris, Z00.00 - Encounter for general adult medical examination without abnormal findings Referrals Hand Surgery Referral M65.332 - Trigger finger, left middle finger Medications: New lisinopril 5 mg PO DAILY 90 tabs 0RF
[2024-05-10 10:12] VITALS: BP 132/70; PULSE 68; O2SAT 98; BMI 24.5
== END 2024-05-10 11:17 | disposition home or self-care (01) ==
LOC: HO.HMCC 10:09
PROVIDERS: PCP Internal Medicine; Visit Provider Internal Medicine
DX: I20.89 Other forms of angina pectoris (principal); M65.332 Trigger finger, left middle finger; F41.9 Anxiety disorder, unspecified; F32.9 Major depressive disorder, single episode, unspecified; E78.5 Hyperlipidemia, unspecified; Z00.00 Encounter for general adult medical examination without abnormal findings; I10 Essential (primary) hypertension

== ENCOUNTER → 2024-05-10 10:08 | Outpatient (BNVA) | payer MEDICARE, SELFPAY | PROVIDERS: PCP Internal Medicine; Visit Provider Internal Medicine | DX: Z00.01 Encounter for general adult medical examination with abnormal findings (principal); I20.89 Other forms of angina pectoris; M65.332 Trigger finger, left middle finger; F41.9 Anxiety disorder, unspecified; F32.9 Major depressive disorder, single episode, unspecified; E78.5 Hyperlipidemia, unspecified; I10 Essential (primary) hypertension | CPT/HCPCS: 96127; 99397 ==

== ENCOUNTER 2024-06-02 09:19 | Outpatient (AMB) | payer MEDICARE, SELFPAY ==
--- NOTE | 2024-06-02 10:00 | A.OFFVIS_ITS ---
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 Patient reports her left middle finger is painful at night that radiates into the palm, she also reports a clicking sound when she open and closes her hand. She needs assistance with her right hand to push the left middle finger up when this happens. Reports pain in her right thumb. She had a this happen to her left thumb in the past, was given an injection however it did not work so she had surgery to resolve the issue. Expresses numbness and tingling in the left middle finger that radiates into her palm. She has a band she wears on her middle finger of the left hand, says if she does not wear it at night she is unable to straighten her finger the next morning. She would like to discuss an injection. 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 The patient states that the symptoms have been ongoing for approximately 1 month. Of note, the patient does have a history of left thumb trigger thumb, for which she did receive injections but this did not help, and she eventually had a trigger release. Patient states she is open to any treatment options available to her. Patient also reports numbness and tingling of the distal left middle finger. No other acute complaints or concerns at this time. [facility] Medical History Colon cancer screening Annual physical exam Chronic GERD Anxiety and depression Hyperlipidemia Surgical History H/O colonoscopy Family History Father Stomach cancer Mother Diabetes Hypertension Bone cancer Social History Housing: House Patient Tobacco Use Status: Never used Tobacco e-Cigarette/Vaping Use: Never Used service: No Current occupational status: employed Cognitive needs: No Hearing needs: No Vision needs: Yes Review of Systems Const All systems reviewed & are unremarkable except as noted in HPI and below Physical Exam Vital Signs: BMI result Body Mass Index 0.2 Extrem Other: Patient is alert, oriented, and in no acute distress. Neuro: Normal sensation of the tips of all digits of the right hand at this time Vascular: Cap refill brisk Pain: Patient reports tenderness over the A1 harsh of the left middle finger ROM: Visible and palpable locking and catching noted of the left middle finger Patient is able to flex and extend all of the digits of the left hand fully and without difficulty Skin: No lacerations or abrasions. General: No ecchymosis, erythema, or evidence of infection. Psych: Appears grossly normal Affect normal Attitude cooperative Assessment & Plan Assessment & Plan (1) Trigger finger, left middle finger: Comment: CHRONIC LEFT MIDDLE FINGER Code(s): M65.332 - Trigger finger, left middle finger Category: Medical (2) Numbness and tingling of left hand: Code(s): R20.0 - Anesthesia of skin; R20.2 - Paresthesia of skin Category: Medical Plan 1. Trigger finger, left middle finger I educated the patient about the condition. I discussed both operative and nonoperative treatment options. The patient would like to proceed with surgery. The risks and benefits of operative treatment were discussed with the patient and the patient wishes to proceed with surgery. These risks include, but are not limited to, risk of damage to blood vessels, nerves, tendons, infection, recurrence, incomplete relief of preoperative symptoms, persistent pain, possible need for further surgery, and the risks associated with regional blocks and/or anesthesia. Plan is to take the patient to the operating room at some point in the next few weeks for the following procedures: 1. Left middle finger trigger release under local anesthesia All of the preoperative paperwork including the consent was discussed today. All of the patient's questions were answered in the clinic today. The patient understands that they will be in contact with our surgical technology instructor to discuss scheduling their procedure. Patient denies diabetes, blood thinners, asthma, heart issues, lung issues, kidney issues, or current smoking. 2. Numbness and tingling of left hand Intermittent, daily, worse at night Patient was sent for EMG and nerve conduction study to assess the health of the nerves of the left upper extremity Patient will follow-up after EMG and nerve conduction study for results review and discussion of further treatment options if indicated Patient was amenable to this plan Orders: Orders NE electromyogram (EMG) Today R20.0 - Anesthesia of skin, R20.2 - Paresthesia of skin NE nerve conduction velocity Today R20.0 - Anesthesia of skin, R20.2 - Paresthesia of skin Coding Level of Care Code New Pt Level 4 (27840) Diagnoses Trigger finger, left middle finger M65.332 Numbness and tingling of left hand R20.0; R20.2
== END 2024-06-02 10:35 | disposition home or self-care (01) ==
PROVIDERS: PCP Internal Medicine
DX: M65.332 Trigger finger, left middle finger (principal); R20.0 Anesthesia of skin; R20.2 Paresthesia of skin
CPT/HCPCS: 99204

== ENCOUNTER → 2024-06-02 09:19 | Outpatient (BNVA) | payer MEDICARE, SELFPAY | PROVIDERS: PCP Internal Medicine | DX: M65.332 Trigger finger, left middle finger (principal); R20.0 Anesthesia of skin; R20.2 Paresthesia of skin | CPT/HCPCS: 99202 ==

== ENCOUNTER 2024-07-19 08:47 | Outpatient (REF) | payer MEDICARE, SELFPAY ==
--- NOTE | 2024-07-19 08:51 | EMG_ITS ---
Chief complaint: Left hand numbness Reason for referral: Evaluate for Carpal Tunnel Syndrome Referred by: Phani AL Procedure done: Left upper extremity NCS/EMG Precautions and/or limitations: None The limb temperature was monitored continuously and remained between 32-36 degrees C during the performance of the NCS. Nerve Conduction Studies Anti Sensory Summary Table ?Stim Site NR Onset (ms) Norm Onset (ms) Peak (ms) Norm Peak (ms) O-P Amp (?V) Norm O-P Amp Site1 Site2 Delta-0 (ms) Dist (cm) Venancio (m/s) Norm Venancio (m/s) Left Median Anti Sensory (2nd Digit) Wrist ? 2.1 2.7 <3.6 43.8 >10 Wrist 2nd Digit 2.1 14.0 67 Left Ulnar Anti Sensory (5th Digit) Wrist ? 2.4 3.0 <3.7 15.5 >15.0 Wrist 5th Digit 2.4 14.0 58 Motor Summary Table ?Stim Site NR Onset (ms) Norm Onset (ms) O-P Amp (mV) Norm O-P Amp iAmp (mV) Amp (1st) (%) Site1 Site2 Delta-0 (ms) Dist (cm) Venancio (m/s) Norm Venancio (m/s) Left Median Motor (Abd Poll Brev) Wrist ? 3.0 <3.9 11.2 >4.5 12.9 100.0 Elbow Wrist 3.5 19.0 54 >45 Elbow ? 6.5 11.3 12.8 100.9 Left Ulnar Motor (Abd Dig Minimi) Wrist ? 2.5 <3.0 7.6 >5 8.8 100.0 B Elbow Wrist 2.7 15.0 56 >45 B Elbow ? 5.2 6.8 8.1 89.5 A Elbow B Elbow 1.3 10.0 77 >45 A Elbow ? 6.5 9.1 10.9 119.7 Comparison Summary Table ?Stim Site NR Peak (ms) Norm Peak (ms) P-T Amp (?V) Site1 Site2 Delta-P (ms) Norm Delta (ms) Left Median/Radial Dig I Comparison (Digit 1 - 10cm) Median ? 2.3 <2.9 63.7 Median Radial 0.1 Radial ? 2.4 <2.8 60.6 EMG ?Side Muscle Nerve Root Ins Act Fibs Psw Amp Dur Poly Recrt Int Pat Comment Left 1stDorInt Ulnar C8-T1 Nml Nml Nml Nml Nml 0 Nml Complete Left FlexCarRad Median C6-7 Nml Nml Nml Nml Nml 0 Nml Complete Left Biceps Musculocut C5-6 Nml Nml Nml Nml Nml 0 Nml Complete Left Triceps Radial C6-7-8 Nml Nml Nml Nml Nml 0 Nml Complete Left Deltoid Axillary C5-6 Nml Nml Nml Nml Nml 0 Nml Complete FINDINGS: All motor and sensory nerves tested showed normal latencies, amplitudes and conduction velocities. Concentric needle EMG was performed in selected muscles of the left upper extremity. Study did not reveal signs of electric abnormalities as shown in the table above. IMPRESSION: 1. This is a normal study. 2. There is no electrodiagnostic evidence for median neuropathy, ulnar neuropathy, brachial plexopathy, or cervical radiculopathy. Thank you for your kind referral. Faiza Mckeon MD, [place] Board Certified, [place] [employer] and Rehabilitation (ABPMR) Board Certified, [place] Board of Electrodiagnostic Medicine (ABEM) CODIN [id number] MTDD
== END 2024-07-19 08:48 | disposition home or self-care (01) ==
LOC: HO.NEURO 08:47
PROVIDERS: PCP Internal Medicine
DX: R20.0 Anesthesia of skin (principal); R20.2 Paresthesia of skin
CPT/HCPCS: 95886; 95909

== ENCOUNTER → 2024-07-19 08:51 | Outpatient (BNV) | payer MEDICARE, SELFPAY | PROVIDERS: PCP Internal Medicine; Visit Provider Physical Medicine & Rehabilitation | DX: R20.0 Anesthesia of skin (principal); R20.2 Paresthesia of skin | CPT/HCPCS: 95886; 95909 ==

== ENCOUNTER 2024-07-31 06:18 | Day surgery (SDC) | payer MEDICARE, SELFPAY ==
[2024-07-31 06:43] VITALS: BMI 26.2
[2024-07-31 06:44] VITALS: BP 135/42; PULSE 74; RESP 16; TEMP 36.2; O2SAT 95
--- NOTE | 2024-07-31 08:09 | MHC.SHP ---
Pre-Procedural Eval Section A - 24 Hr Update-Section A only Date of Service: 07/31/24 The patient is an INPATIENT: No Changes since office visit: No Cold of Flu in the past 2 weeks, No New Medical Problems, No Changes in Medication and No Patient answered all questions The patient has been examined within 24 hours of the surgical procedure. The History & Physical has been completed within 30 days and I have reviewed it.: Yes Section B - Complete if H&P > 30 days Chief Complaint: Trigger finger, left middle finger Allergies: Allergies Allergy/AdvReac Type Severity Reaction Status Date / Time No Known Allergies Allergy Verified 06/02/24 10:07 Plan Diagnosis/Plan: Unchanged I have reviewed the history and physical and performed a pertinent physical examination on my patient. No changes have occurred unless specified. Time Spent With Patient Time: Total time managing care of this patient today ____ minutes.
--- NOTE | 2024-07-31 08:12 | P.OP_ITS ---
Operative Note Operative Note Date of Service: 07/31/24 Narrative: Operative Note Preop diagnosis: 1. Left middle finger Trigger finger Postop diagnosis: 1. Left middle finger Trigger finger Procedure: 1. Left middle finger A1 harsh release Surgeon: Tessa Rodas MD Data Processing Clerk: None Anesthesia: local block using 1% lidocaine with epinephrine Findings: No locking or catching after A1 harsh release EBL: Less than 5 mL Tourniquet time: None Specimens: None Complications: None Disposition: Brought to recovery room in stable condition Plan: Follow-up for 10-14 days for wound check and suture removal Indications: The patient is 69 years old, with a left middle finger trigger finger that has been unresponsive to nonoperative management. The risks and benefits of operative treatment including but not limited to risk of damage to blood vessels, nerves, tendons, infection, persistent pain, persistent symptoms, recurrence or possible need for additional surgery were discussed with the patient and the patient wishes to proceed with surgery. Procedure: Once consent was obtained a local block was performed in the preop area using a combination of 1% lidocaine with epinephrine. The patient was then brought back to the operating suite and placed on the operative table in supine position. The left upper extremity was prepped and draped in a standard surgical fashion. Once assured that we had a good block, a 1.5 cm oblique incision was made centered over the A1 harsh of the left middle finger . The incision was made through the skin to the subcutaneous tissues using a #15 blade. Careful dissection was made down to the level of the A1 harsh using tenotomy scissors, with care being taken to protect the nearby neurovascular structures. A longitudinal incision was made in the A1 harsh 1st using a #15 blade, then using tenotomy scissors under direct visualization. The A1 harsh was noted to be thickened. Following our A1 harsh release, we no longer saw any locking or catching of the digit with flexion and extension. Once satisfied with our A1 harsh release the wound was copiously irrigated with normal saline and hemostasis was obtained with a brief period of local pressure. The skin edges were reapproximated with some 5.0 nylon suture material and a sterile dressing was applied. The patient appears to have tolerated the procedure well and with no complications. All digits were well vascularized at the conclusion of the case.
[2024-07-31 08:53] VITALS: BP 136/54; PULSE 79; RESP 16; O2SAT 94
== END 2024-07-31 08:55 | disposition home or self-care (01) ==
PROVIDERS: PCP Internal Medicine; Visit Provider Orthopaedic Surgery
PROC: (CPT 26055; principal; 2024-07-31 07:30)
DX: M65.332 Trigger finger, left middle finger (principal); R20.0 Anesthesia of skin; R20.2 Paresthesia of skin; E78.5 Hyperlipidemia, unspecified; F41.9 Anxiety disorder, unspecified; K21.9 Gastro-esophageal reflux disease without esophagitis; Z79.899 Other long term (current) drug therapy
CPT/HCPCS: 26055; J2004

== ENCOUNTER → 2024-07-31 06:18 | Outpatient (BNV) | payer MEDICARE, SELFPAY | PROVIDERS: PCP Internal Medicine; Visit Provider Orthopaedic Surgery | DX: M65.332 Trigger finger, left middle finger (principal) | CPT/HCPCS: 26055 ==

== ENCOUNTER 2024-08-09 15:35 | Outpatient (AMB) | payer MEDICARE, SELFPAY ==
--- NOTE | 2024-08-09 15:36 | A.OFFVIS_ITS ---
Intake Visit Reasons: Telehealth-LT middle finger EMG review Intake Note: Aj is a 69 year old right hand dominant female who presents today for an EMG review of her left middle finger. EMG done on 07/19/2024 IMPRESSION: 1. This is a normal study. 2. There is no electrodiagnostic evidence for median neuropathy, ulnar neuropathy, brachial plexopathy, or cervical radiculopathy. Allergies No Known Allergies Allergy (Verified 08/14/24 08:50) [facility] Telehealth-LT middle finger EMG review: Details: Aj is a 69 year old right hand dominant female who presents today for an EMG review of her left middle finger. EMG done on 07/19/2024 IMPRESSION: 1. This is a normal study. 2. There is no electrodiagnostic evidence for median neuropathy, ulnar neuropathy, brachial plexopathy, or cervical radiculopathy. [facility] Medical History Colon cancer screening Annual physical exam Chronic GERD Anxiety and depression Hyperlipidemia Surgical History H/O colonoscopy Family History Father Stomach cancer Mother Diabetes Hypertension Bone cancer Social History Housing: House Patient Tobacco Use Status: Never used Tobacco e-Cigarette/Vaping Use: Never Used service: No Current occupational status: employed Cognitive needs: No Hearing needs: No Vision needs: Yes Review of Systems Const All systems reviewed & are unremarkable except as noted in HPI and below Assessment & Plan Assessment & Plan (1) Numbness and tingling of left hand: Code(s): R20.0 - Anesthesia of skin; R20.2 - Paresthesia of skin Category: Medical Plan 1. Numbness and tingling of left middle finger Improving since last visit Negative EMG At this time, patient is educated that because her EMG and nerve conduction study was negative, there is no acute intervention indicated However, patient was informed that if this numbness and tingling persists for another 6 months, she should call us for rereferral for repeat EMG and nerve conduction study Patient was amenable to this plan Patient will follow-up as needed with any acute concerns Coding Level of Care Code Tele Est Pt Level 3 (61968) Diagnoses Numbness and tingling of left hand R20.0; R20.2
== END 2024-08-09 15:43 | disposition home or self-care (01) ==
LOC: HO.HOS 15:35
PROVIDERS: PCP Internal Medicine
DX: R20.0 Anesthesia of skin (principal); R20.2 Paresthesia of skin
CPT/HCPCS: 99024

== ENCOUNTER → 2024-08-09 15:35 | Outpatient (BNVA) | payer MEDICARE, SELFPAY | PROVIDERS: PCP Internal Medicine | DX: R20.0 Anesthesia of skin (principal); R20.2 Paresthesia of skin | CPT/HCPCS: 99212 ==

== ENCOUNTER 2024-08-14 07:56 | Outpatient (AMB) | payer MEDICARE, SELFPAY ==
[2024-08-14 08:30] VITALS: BMI 26.2
--- NOTE | 2024-08-14 08:30 | MHC.OFFVIS ---
Vital Signs 08/14/24 08:30 Height 5 ft 2 in Weight 143 lb BMI 26.2 Intake Visit Reasons: PO-Lt MF Trigger Release 07/31/24 Intake Note: Aj is a 69 year old right hand dominant female who presents today s/p left middle finger trigger release, DOS: 07/31/24, by Dr. Rodas. Patient reports she is doing well, triggering has resolved. She is a little limited when trying to put her hand flat on a surface. Allergies No Known Allergies Allergy (Verified 08/14/24 08:50) HPI HPI PO-Lt MF Trigger Release 07/31/24: Details: Aj is a 69 year old right hand dominant female who presents today s/p left middle finger trigger release, DOS: 07/31/24, by Dr. Rodas. Patient reports she is doing well, triggering has resolved. She is a little limited when trying to put her hand flat on a surface. [facility] Medical History Colon cancer screening Annual physical exam Chronic GERD Anxiety and depression Hyperlipidemia Surgical History H/O colonoscopy Family History Father Stomach cancer Mother Diabetes Hypertension Bone cancer Social History Housing: House Patient Tobacco Use Status: Never used Tobacco e-Cigarette/Vaping Use: Never Used service: No Current occupational status: employed Cognitive needs: No Hearing needs: No Vision needs: Yes Review of Systems Const All systems reviewed & are unremarkable except as noted in HPI and below Physical Exam Vital Signs: BMI result Body Mass Index 26.2 Extrem Other: Patient is alert, oriented, and in no acute distress. Neuro: Normal sensation of the tips of all digits of the right hand at this time Vascular: Cap refill brisk Pain: Patient reports no tenderness at the incision over the A1 harsh of the left middle finger ROM: No visible or palpable locking and catching of the left middle finger remains Patient is able to flex and extend all of the digits of the left hand fully and without difficulty Skin: Well approximated and well healing incision site noted over the A1 harsh of the left middle finger No evidence of infection General: No ecchymosis, erythema, or evidence of infection. Psych: Appears grossly normal Affect normal Attitude cooperative Assessment & Plan Assessment & Plan (1) Trigger finger, left middle finger: Comment: CHRONIC LEFT MIDDLE FINGER Code(s): M65.332 - Trigger finger, left middle finger Category: Medical Plan 1. Status post left middle finger trigger release DOS 07/31/2024 Patient appears to be recovering well postoperatively Patient was educated the typical course at this time, patient was informed that she will require no acute follow-up with us, as she is recovering very well Patient was educated on signs and symptoms worrisome for infection and is advised to return if she experiences any of these Patient was amenable to this plan Patient will follow-up as needed with any acute concerns Coding Level of Care Code Global (53553) Diagnoses Trigger finger, left middle finger M65.332
== END 2024-08-14 08:58 | disposition home or self-care (01) ==
PROVIDERS: PCP Internal Medicine
DX: M65.332 Trigger finger, left middle finger (principal)
CPT/HCPCS: 99024

== ENCOUNTER → 2024-08-14 07:56 | Outpatient (BNVA) | payer MEDICARE, SELFPAY | PROVIDERS: PCP Internal Medicine | DX: Z47.89 Encounter for other orthopedic aftercare (principal); M65.332 Trigger finger, left middle finger; Z98.890 Other specified postprocedural states | CPT/HCPCS: 99212 ==

== ENCOUNTER 2024-12-26 10:11 | Outpatient (REF) | payer MEDICARE, MEDICAID, SELFPAY ==
--- NOTE | ~2024-12-26 | XR_ITS ---
EXAMINATION: XR ANKLE, LEFT CLINICAL INFORMATION: Pain in left ankle. COMPARISON: None available. TECHNIQUE: AP, lateral, and mortise views of the left ankle. FINDINGS: There is no widening of the syndesmosis. The ankle mortise is congruent. The talar dome appears intact. There is a small plantar calcaneal spur. XR/XR ankle LT min 3V IMPRESSION: Small plantar calcaneal spur, nonspecific finding. Electronically signed by: Judson Kee MD 12/26/2024 12:31 PM EDT
--- NOTE | ~2024-12-26 | XR_ITS ---
EXAMINATION: XR KNEE, LEFT CLINICAL INFORMATION: M25.562 - Pain in left knee COMPARISON: None available. TECHNIQUE: Four views of the left knee. FINDINGS: There is a small joint effusion. Small marginal osteophytes are present along the superior pole patella. Joint spaces are preserved. XR/XR knee LT 4V IMPRESSION: Unremarkable left knee aside from a small marginal osteophytes involving superior pole patella. Electronically signed by: Judson Kee MD 12/26/2024 12:33 PM EDT
== END 2024-12-26 10:12 | disposition home or self-care (01) ==
LOC: HO.HMGCX 10:11
PROVIDERS: PCP Internal Medicine; Visit Provider Internal Medicine
DX: M25.562 Pain in left knee (principal); M25.572 Pain in left ankle and joints of left foot; E78.5 Hyperlipidemia, unspecified; Z13.30 Encounter for screening examination for mental health and behavioral disorders, unspecified; Z13.31 Encounter for screening for depression
CPT/HCPCS: 73564; 73610; 96127; 99212

== ENCOUNTER 2024-12-26 10:11 | Outpatient (AMB) | payer MEDICARE, MEDICAID, SELFPAY ==
[2024-12-26 10:45] VITALS: BP 126/76; PULSE 72; RESP 18; TEMP 37; O2SAT 97; BMI 26.3
--- NOTE | 2024-12-26 10:45 | A.OFFPC_ITS ---
Vital Signs 12/26/24 10:45 Height 5 ft 2 in Weight 144 lb BMI 26.3 BP 126/76 Blood Pressure Location Lt brachial Position Sitting Respiration 18 Pulse 72 Pulse Source Pulse Oximeter Temp 98.6 F Temp Source Oral Pulse Oximetry (%) 97 Oxygen Delivery Method Room Air Intake Visit Reasons: Follow up Intake Note: Pt is here today for a follow up visit. Pt c/o L ankle pain that travels to her calf for couple of months. Allergies No Known Allergies Allergy (Verified 12/26/24 10:45) Medication List - Last Reconciled 12/26/24 by Esther Ashley MD ezetimibe-simvastatin 10-40 mg 1 tab PO DAILY fluoxetine 10 mg PO DAILY hydrocodone-acetaminophen 5-325 mg 1 tab PO Q4-6H PRN lisinopril 5 mg PO DAILY omeprazole 20 mg PO DAILY valacyclovir 2,000 mg (2 x 1 gram) PO Q12H Tobacco use date assessed: 12/26/24 Fall risk assessment: No Falls in past year Last assessed Fall Risk: 12/26/24 Dental Screening Dental Screen Date: 12/26/24 Did you have a dental visit in the last 12 months?: Yes Did you have a dental problem in the last 6 months where you did not have access to dental care?: No Was dental information given to patient?: Patient has dentist HPI Follow up HPI Details Patient presents for the follow-up on hyperlipidemia and hypertension controlled on current medications. She complains of chronic left knee and ankle pain worse when walking longer distance. Patient reports some stiffness in the joint and pain radiating to anterior mota. She denies weakness or numbness in extremities lower back pain PFSH Medical History Colon cancer screening Annual physical exam Chronic GERD Anxiety and depression Hyperlipidemia Surgical History H/O colonoscopy Family History Father Stomach cancer Mother Diabetes Hypertension Bone cancer Social History Housing: House Patient Tobacco Use Status: Never used Tobacco e-Cigarette/Vaping Use: Never Used service: No Current occupational status: retired Cognitive needs: No Hearing needs: No Vision needs: Yes Questionnaire PHQ-9 Over the last 2 weeks, how often have you been bothered by any of the following problems? 1. Little interest or pleasure in doing things: not at all 2. Feeling down, depressed, or hopeless: not at all 3. Trouble falling or staying asleep, or sleeping too much: not at all 4. Feeling tired or having little energy: not at all 5. Poor appetite or overeating: not at all 6. Feeling bad about yourself - or that you are a failure or have let yourself or your family down: not at all 7. Trouble concentrating on things, such as reading the newspaper or watching television: not at all 8. Moving or speaking so slowly that other people could have noticed. Or the opposite - being so fidgety or restless that you have been moving around a lot more than usual: not at all 9. Thoughts that you would be better off or of hurting yourself in some way: not at all Total score: 0 Depression Screening Interpretation: Negative Depression Screening Done: Yes 94576 - PHQ-9 Billing: Yes Source: Developed by Drs. Satya Parsons, Katelyn Salgado, Jeremias Lux and colleagues, with an educational yasmany from [employer]. Thrive Questionnaire Date Thrive assessed: 12/26/24 I am a: Patient What is your living situation today?: I have a steady place to live Within the past 12 months, did the food you bought not last and you didn't have the money to get more?: I choose not to answer this question Within the past 12 months, did you worry whether your food would run out before you got money to buy more?: I choose not to answer this question Do you have trouble paying for medicines?: I choose not to answer this question Do you have trouble getting transportation to medical appointments?: No Do you have trouble paying your heating and electricity bill?: No Do you have trouble taking care of your child, family member or friend?: No Do you have trouble with day-to-day activities such as bathing, preparing meals, shopping, managing finances, etc.?: No Are you currently unemployed and looking for a job?: No Are you interested in more education?: No Please select the resources that you would like help with: None Currently or been in a relationship where the following occur: No concerns reported THRIVE Score: 0 AUDIT C Alcohol Use Questionnaire (AUDIT-C) 1. How often do you have a drink containing alcohol?: Never 3. How often do you have six or more drinks on one occasion?: Never Total Score: 0 ANUP-7 AMB Questionnaire ANUP-7 Date ANUP - 7 assessed: 12/26/24 Feeling nervous, anxious, or on edge: 0 = Not at all Not being able to stop or control worryin = Not at all Worrying too much about different things: 0 = Not at all Trouble relaxin = Not at all Being so restless that it is hard to sit still: 0 = Not at all Becoming easily annoyed or irritable: 0 = Not at all Feeling afraid as if something awful might happen: 0 = Not at all Total ANUP-7 score (0-4 normal; 5-9 mild; 10-14 moderate; 15-21 severe): 0 Source: Developed by Drs. Satya Parsons, Katelyn Salgado, Jeremias Lux and colleagues, with an educational yasmany from [employer]. ANUP-7 Assessment Billing ANUP-7 Assessment Tool: ANUP-7 Assessment 91138 Review of Systems Const All systems reviewed & are unremarkable except as noted in HPI and below ENT Reports no additional complaints Card Reports no additional complaints Resp Reports no additional complaints GI Reports no additional complaints Physical exam (Primary Care) Vital Signs: Last Vital Signs Temp 98.6 F 12/26/24 10:45 Pulse 72 12/26/24 10:45 Resp 18 12/26/24 10:45 BP 126/76 12/26/24 10:45 Pulse Ox 97 12/26/24 10:45 Oxygen Delivery Method Room Air 12/26/24 10:45 BMI result Body Mass Index 26.3 Tobacco/Smoking Status: Tobacco use Status Tobacco use date assessed 12/26/24 12/26/24 10:46 Patient Tobacco Use Status Never used Tobacco 12/26/24 10:46 e-Cigarette/Vaping Use Never Used 12/26/24 10:46 PHQ-9: PHQ-9 Score PHQ-9: Total score 0 12/26/24 11:39 Depression Screening Interpretation: Negative Thrive Assessment: Date of Thrive Assessment Date Thrive assessed 12/26/24 12/26/24 10:46 Currently or been in a relationship where the following occur: No concerns reported Const General: no acute distress HENMT Head: Yes normal to inspection Throat: Yes posterior oropharynx normal Resp Effort & Inspection: normal respiratory effort Auscultation: clear to auscultation bilaterally Cardio Rhythm: regular rhythm Heart sounds: S1 normal heart sound present and S2 normal heart sound present Extrem Other: There is decreased range of motion crepitus in the left knee, the slightly decreased range of motion left ankle, there is no soft tissue swelling erythema or warmth Coding Level of Care Code Est Pt Level 4 (90187) Diagnoses Knee pain, left M25.562 Ankle pain, left M25.572 Hyperlipidemia E78.5 Additional Codes ANUP-7 Assessment Billing - ANUP-7 Assessment Tool: ANUP-7 Assessment 65182 ([id number]) PHQ-9 - 00024 - PHQ-9 Billing: Yes ([id number]) Assessment & Plan Assessment & Plan (1) Knee pain, left: Code(s): M25.562 - Pain in left knee Category: Medical Plan: Obtain x-ray of left knee and ankle, meloxicam is prescribed , patient will be referred to physical therapy (2) Ankle pain, left: Code(s): M25.572 - Pain in left ankle and joints of left foot Category: Medical Plan: As above (3) Hyperlipidemia: Code(s): E78.5 - Hyperlipidemia, unspecified Category: Medical Plan: Continue current medications Orders: Orders PT Evaluation and Treatment Today M25.562 - Pain in left knee, M25.572 - Pain in left ankle and joints of left foot Medications: New meloxicam 15 mg PO DAILY 14 tabs 0RF Refilled lisinopril 5 mg PO DAILY 90 tabs 3RF ezetimibe-simvastatin 10-40 mg 1 tab PO DAILY 90 tabs 3RF fluoxetine 10 mg PO DAILY 90 caps 3RF Discontinued hydrocodone-acetaminophen 5-325 mg Partial Fill upon patient request. Discontinued Reason: Doctor's Order 1 tab PO Q4-6H PRN 5 tabs 0RF pain
--- OUTSIDE RECORDS SUMMARY | 2024-12-26 11:39 | XMS_ITS ---
Author Name [facility] Organization Unknown History of Medication Use Medication Directions Dispensed Refills Start Date End Date Stat doxycycline hyclate (capsule) Take 1 pill PO QD x 30 days. Take with food and a full glass of water. 08/24/2024 completed metronidazole (cream) Apply pea-size amount to entire face once daily. Moisturize following use. 08/24/2024 completed ezetimibe-simvastati n (tablet) 1 mg completed lisinopril (tablet) 1 mg comp leted Encounters Encounter Type Encounter Reason Primary Diagnosis Location Date Ambulatory [facility] 08/24 Care Team Organization Name Specialty Phone Email Start Date End Da [facility] 09/20/2024 [facility] 08/23/2024
== END 2024-12-26 15:14 | disposition home or self-care (01) ==
LOC: HO.HMCC 10:12
PROVIDERS: PCP Internal Medicine; Visit Provider Internal Medicine
DX: M25.562 Pain in left knee (principal); M25.572 Pain in left ankle and joints of left foot; E78.5 Hyperlipidemia, unspecified

== ENCOUNTER → 2024-12-26 11:48 | Outpatient (BNV) | payer MEDICARE, MEDICAID, SELFPAY | PROVIDERS: PCP Internal Medicine; Visit Provider Radiology Diagnostic Radiology | DX: M25.762 Osteophyte, left knee (principal); M77.32 Calcaneal spur, left foot | CPT/HCPCS: 73564; 73610 ==

== ENCOUNTER 2025-01-17 11:37 | Outpatient (AMB) | payer MEDICARE, MEDICAID, SELFPAY ==
[2025-01-17 11:43] VITALS: BP 118/70; PULSE 89; RESP 18; TEMP 36.7; O2SAT 97; BMI 25.8
--- NOTE | 2025-01-17 11:43 | A.OFFPC_ITS ---
Vital Signs 01/17/25 11:43 Height 5 ft 2 in Weight 141 lb BMI 25.8 BP 118/70 Blood Pressure Location Lt brachial Position Sitting Respiration 18 Pulse 89 Pulse Source Pulse Oximeter Temp 98.0 F Temp Source Oral Pulse Oximetry (%) 97 Oxygen Delivery Method Room Air Intake Visit Reasons: Follow up on L ankle pain not better Intake Note: Pt is here today for a follow up visit on L lower leg pain. Pt states that the pain is not better she can not walk due to pain. Pt states that she uses cane. Allergies No Known Allergies Allergy (Verified 01/17/25 11:47) Medication List - Last Reconciled 01/17/25 by Esther Ashley MD baclofen 20 mg PO BEDTIME ezetimibe-simvastatin 10-40 mg 1 tab PO DAILY fluoxetine 10 mg PO DAILY lisinopril 5 mg PO DAILY meloxicam 15 mg PO DAILY omeprazole 20 mg PO DAILY prednisone 20 mg PO DAILY valacyclovir 2,000 mg (2 x 1 gram) PO Q12H Tobacco use date assessed: 01/17/25 Fall risk assessment: No Falls in past year Last assessed Fall Risk: 01/17/25 Dental Screening Dental Screen Date: 12/26/24 HPI Follow up on L ankle pain not better HPI Details Patient presents complaining of 3 days of left calf pain worse when walking. Patient has been taking ibuprofen and is feeling better today. Patient denies any injury. He had an episode of lower back pain radiating to left lower extremity in the past. Patient denies any weakness or numbness in extremities, change in bowel bladder function. Left ankle pain resolved with meloxicam. [facility] Medical History Colon cancer screening Annual physical exam Chronic GERD Anxiety and depression Hyperlipidemia Surgical History H/O colonoscopy Family History Father Stomach cancer Mother Diabetes Hypertension Bone cancer Social History Housing: House Patient Tobacco Use Status: Never used Tobacco e-Cigarette/Vaping Use: Never Used service: No Current occupational status: retired Cognitive needs: No Hearing needs: No Vision needs: Yes Questionnaire Thrive Questionnaire Date Thrive assessed: 05/10/24 I am a: Patient What is your living situation today?: I have a steady place to live Within the past 12 months, did the food you bought not last and you didn't have the money to get more?: I choose not to answer this question Within the past 12 months, did you worry whether your food would run out before you got money to buy more?: I choose not to answer this question Do you have trouble paying for medicines?: I choose not to answer this question Do you have trouble getting transportation to medical appointments?: No Do you have trouble paying your heating and electricity bill?: No Do you have trouble taking care of your child, family member or friend?: No Do you have trouble with day-to-day activities such as bathing, preparing meals, shopping, managing finances, etc.?: No Are you currently unemployed and looking for a job?: No Are you interested in more education?: No Please select the resources that you would like help with: None Currently or been in a relationship where the following occur: No concerns reported THRIVE Score: 0 AUDIT C Alcohol Use Questionnaire (AUDIT-C) 1. How often do you have a drink containing alcohol?: Never 3. How often do you have six or more drinks on one occasion?: Never Total Score: 0 ANUP-7 AMB Questionnaire ANUP-7 Date ANUP - 7 assessed: 12/26/24 Source: Developed by Drs. Satya Parsons, Katelyn Salgado, Jeremias Lux and colleagues, with an educational yasmany from [employer]. Review of Systems Const All systems reviewed & are unremarkable except as noted in HPI and below ENT Reports no additional complaints Card Reports no additional complaints Resp Reports no additional complaints GI Reports no additional complaints Reports no additional complaints Physical exam (Primary Care) Vital Signs: Last Vital Signs Temp 98.0 F 01/17/25 11:43 Pulse 89 01/17/25 11:43 Resp 18 01/17/25 11:43 BP 118/70 01/17/25 11:43 Pulse Ox 97 01/17/25 11:43 Oxygen Delivery Method Room Air 01/17/25 11:43 BMI result Body Mass Index 25.8 Tobacco/Smoking Status: Tobacco use Status Tobacco use date assessed 01/17/25 01/17/25 11:51 Patient Tobacco Use Status Never used Tobacco 01/17/25 11:51 e-Cigarette/Vaping Use Never Used 01/17/25 11:51 Thrive Assessment: Date of Thrive Assessment Date Thrive assessed 05/10/24 01/17/25 11:51 Currently or been in a relationship where the following occur: No concerns reported Const General: no acute distress HENMT Head: Yes normal to inspection Face and sinus: Yes normal facial exam Resp Effort & Inspection: normal respiratory effort Auscultation: clear to auscultation bilaterally Cardio Rhythm: regular rhythm Heart sounds: S1 normal heart sound present and S2 normal heart sound present Neuro Cranial nerves: Yes CN's II-XII intact bilaterally Gait exam (Neuro): Normal gait present Motor exam (neuro): 5/5 motor strength present throughout Romberg Test: Negative Extrem Other: There is a slight tenderness in left calf area no erythema warmth or swelling. Straight leg rising 90 degrees bilaterally motor strength 5/5 bilaterally deep tendon reflexes 2+ bilaterally General: Yes no clubbing, cyanosis or edema Coding Level of Care Code Est Pt Level 3 (03742) Diagnoses Sciatica M54.30 Leg pain, left M79.605 Assessment & Plan Assessment & Plan (1) Sciatica: Code(s): M54.30 - Sciatica, unspecified side Category: Medical Plan: Prednisone 40 mg for 4 days followed by 20 mg for 4 days and baclofen prescribed. Patient will schedule an appointment for physical therapy (2) Leg pain, left: Code(s): M79.605 - Pain in left leg Category: Medical Plan: Obtain venous Doppler to rule out DVT Orders: Orders PT Evaluation and Treatment Today M54.30 - Sciatica, unspecified side US venous duplex LE LT Today M79.605 - Pain in left leg XR lumbar spine 2-3V Today M54.30 - Sciatica, unspecified side Medications: New prednisone 2 tabl qd for 4 days, then 1 tabl for 4 days 20 mg PO DAILY 12 tabs 0RF baclofen 20 mg PO BEDTIME 14 tabs 0RF
== END 2025-01-17 12:25 | disposition home or self-care (01) ==
LOC: HO.HMCC 11:38
PROVIDERS: PCP Internal Medicine; Visit Provider Internal Medicine
DX: M54.30 Sciatica, unspecified side (principal); M79.605 Pain in left leg

== ENCOUNTER 2025-01-17 13:11 | Outpatient (REF) | payer MEDICARE, MEDICAID, SELFPAY ==
--- NOTE | ~2025-01-17 | US_ITS ---
EXAMINATION: US TRIPLEX LOWER EXTREMITY, LEFT CLINICAL INFORMATION: Pain, left lower extremity. COMPARISON: None available. TECHNIQUE: Color-flow triplex imaging with spectral analysis and compression Doppler were performed on the left lower extremity. FINDINGS: Respiratory variation, normal compression and augmented flow are present throughout the interrogated left visualized common femoral vein, superficial femoral vein, profunda femoral vein, popliteal vein and midcalf peroneal and posterior tibial venous segments. There is no Barth's cyst. US/US venous duplex LE LT IMPRESSION: No acute deep venous thrombosis interrogated veins, left lower extremity. Negative for DVT. Electronically signed by: Carson Obando MD 01/17/2025 01:47 PM EDT
--- OUTSIDE RECORDS SUMMARY | 2025-01-17 14:02 | XMS_ITS ---
Author Name [facility] Organization Unknown History of Medication Use Medication [...] Encounter Reason Primary Diagnosis Location Date Ambulatory [facility] 08/24 Care Team Organization Name Specialty Phone Email Start Date End Da [facility] 09/20/2024 [facility] 08/23/2024
== END 2025-01-17 13:12 | disposition home or self-care (01) ==
LOC: HO.HMGCX 13:11
PROVIDERS: PCP Internal Medicine; Visit Provider Internal Medicine
DX: M79.605 Pain in left leg (principal); M54.30 Sciatica, unspecified side; Z79.1 Long term (current) use of non-steroidal anti-inflammatories (NSAID); Z79.52 Long term (current) use of systemic steroids; Z79.899 Other long term (current) drug therapy
CPT/HCPCS: 93971; 99212

== ENCOUNTER → 2025-01-17 13:14 | Outpatient (BNV) | payer MEDICARE, MEDICAID, SELFPAY | PROVIDERS: PCP Internal Medicine; Visit Provider Radiology Diagnostic Radiology | DX: M79.662 Pain in left lower leg (principal) | CPT/HCPCS: 93971 ==

== ENCOUNTER 2025-04-17 16:35 | Outpatient (REF) | payer MEDICARE, OTHER, SELFPAY | END 2025-04-17 16:36 | disposition home or self-care (01) | LOC: HO.MRI 16:35 | PROVIDERS: PCP Internal Medicine; Visit Provider Internal Medicine | DX: Z13.89 Encounter for screening for other disorder (principal) ==

== ENCOUNTER 2025-05-09 07:53 | Outpatient (REF) | payer MEDICARE, OTHER, SELFPAY | END 2025-05-09 07:54 | disposition home or self-care (01) | LOC: HO.MAMMO 07:53 | PROVIDERS: PCP Internal Medicine; Visit Provider Internal Medicine | DX: Z12.31 Encounter for screening mammogram for malignant neoplasm of breast (principal) | CPT/HCPCS: 77063; 77067 ==

== ENCOUNTER → 2025-05-09 08:15 | Outpatient (BNV) | payer MEDICARE, MEDICAID, SELFPAY | PROVIDERS: PCP Internal Medicine; Visit Provider Internal Medicine | DX: Z12.31 Encounter for screening mammogram for malignant neoplasm of breast (principal) | CPT/HCPCS: 77063; 77067 ==

== ENCOUNTER 2025-05-14 07:49 | Outpatient (REF) | payer MEDICARE, OTHER, SELFPAY ==
[2025-05-14 10:33] LABS: Appearance Urine Turbid; Glucose Urine UA Negative (Negative); PH 5.0 (5.0-9.0); Specific Gravity - Urine 1.025 (1.005-1.025); UMIC TRIGGER UA YES
[2025-05-14 10:38] LABS: MANUAL DIFF FLAG NO
[2025-05-14 10:46] LABS: Hematocrit 43.2 % (37.0-47.0); Hemoglobin 14.2 g/dl (12.0-16.0); Imm Gran Abs Auto 0.01 X10*3/uL (0.00-0.03); Imm Gran Pct Auto 0.1 % (0.0-0.4); Lymphocytes Absolute Auto 3.3 X10*3/uL (1.2-4.9); Mean Corpuscular HGB Conc 32.9 g/dl (31.0-35.0); Mean Corpuscular Hemoglobin 29.8 pg (27.0-33.0); Mean Corpuscular Volume 90.6 fL (80.0-98.0); NRBC Abs Auto 0.000 X10*3/uL (0.0-0.012); NRBC Pct Auto 0.0 /100WBC (0.0-0.2); Platelet Count 268 X10*3/uL (160-400); Red Blood Count 4.77 X10*6/uL (4.20-5.50); White Blood Count 7.3 X10*3/uL (4.8-10.8)
[2025-05-14 11:08] LABS: Alanine Aminotransferase 74 U/L (0-31); Albumin Level 4.6 g/dL (3.5-5.0); Alkaline Phosphatase 97 U/L (39-117); Anion Gap 9 (12-20); Aspartate Amino Transferase 46 U/L (5-31); Blood Urea Nitrogen 15 mg/dL (9-16); Calcium 9.3 mg/dL (8.4-10.2); Carbon Dioxide 27 mmol/L (22-29); Chloride 109 mmol/L (96-108); Cholesterol 156 mg/dL (<200); Estimated Glomerular Filt Rate > 60; HDL Cholesterol 52 mg/dL (>40); Potassium 3.9 mmol/L (3.3-5.1); Sodium 141 mmol/L (135-145); Total Protein 7.2 g/dL (6.5-8.0); Triglycerides 124 mg/dL (<150)
== END 2025-05-14 07:50 | disposition home or self-care (01) ==
LOC: HO.HMGCLDS 07:49
PROVIDERS: PCP Internal Medicine; Visit Provider Internal Medicine
DX: Z00.00 Encounter for general adult medical examination without abnormal findings (principal); E78.5 Hyperlipidemia, unspecified; I10 Essential (primary) hypertension; Z13.21 Encounter for screening for nutritional disorder
CPT/HCPCS: 36415; 80053; 80061; 81001; 82306; 84443; 85025

== ENCOUNTER 2025-05-25 11:00 | Outpatient (AMB) | payer MEDICARE, MEDICAID, SELFPAY ==
[2025-05-25 11:01] VITALS: BP 122/72; PULSE 71; RESP 16; TEMP 36.7; O2SAT 98; BMI 26.5
--- NOTE | 2025-05-25 11:01 | MHC.PC.OV ---
Vital Signs 05/25/25 11:01 Height 5 ft 2 in Weight 145 lb BMI 26.5 BP 122/72 Blood Pressure Location Rt brachial Position Sitting Respiration 16 Pulse 71 Pulse Source Pulse Oximeter Temp 98.1 F Temp Source Oral Pulse Oximetry (%) 98 Oxygen Delivery Method Room Air Intake Visit Reasons: PE Intake Note: Pt is here today for PE. Allergies No Known Allergies Allergy (Verified 05/25/25 11:02) Medication List - Last Reconciled 05/25/25 by Esther Ashley MD ezetimibe-simvastatin 10-40 mg 1 tab PO DAILY fluoxetine 10 mg PO DAILY lisinopril 5 mg PO DAILY omeprazole 20 mg PO DAILY valacyclovir 2,000 mg (2 x 1 gram) PO Q12H Tobacco use date assessed: 05/25/25 Fall risk assessment: No Falls in past year Last assessed Fall Risk: 05/25/25 Dental Screening Dental Screen Date: 12/26/24 HPI PE HPI Details Patient presents for physical PFSH Medical History (Updated 05/25/25 @ 12:28 by Esther Ashley MD) Colon cancer screening Annual physical exam Chronic GERD Anxiety and depression Hyperlipidemia Surgical History H/O colonoscopy Family History Father Stomach cancer Mother Diabetes Hypertension Bone cancer Social History Housing: House Patient Tobacco Use Status: Never used Tobacco e-Cigarette/Vaping Use: Never Used service: No Current occupational status: retired Cognitive needs: No Hearing needs: No Vision needs: Yes Questionnaire Thrive Questionnaire Date Thrive assessed: 05/25/25 I am a: Patient What is your living situation today?: I have a steady place to live Within the past 12 months, did the food you bought not last and you didn't have the money to get more?: I choose not to answer this question Within the past 12 months, did you worry whether your food would run out before you got money to buy more?: I choose not to answer this question Do you have trouble paying for medicines?: I choose not to answer this question Do you have trouble getting transportation to medical appointments?: No Do you have trouble paying your heating and electricity bill?: No Do you have trouble taking care of your child, family member or friend?: No Do you have trouble with day-to-day activities such as bathing, preparing meals, shopping, managing finances, etc.?: No Are you currently unemployed and looking for a job?: No Are you interested in more education?: No Please select the resources that you would like help with: None Currently or been in a relationship where the following occur: No concerns reported THRIVE Score: 0 ANUP-7 AMB Questionnaire ANUP-7 Date ANUP - 7 assessed: 12/26/24 Source: Developed by Drs. Satya Parsons, Katelyn Salgado, Jeremias Lux and colleagues, with an educational yasmany from [email or web address]. Review of Systems Const All systems reviewed & are unremarkable except as noted in HPI and below Eyes Reports no additional complaints ENT Reports no additional complaints Card Reports no additional complaints Resp Reports no additional complaints GI Reports no additional complaints Physical exam (Primary Care) Vital Signs: Last Vital Signs Temp 98.1 F 05/25/25 11:01 Pulse 71 05/25/25 11:01 Resp 16 05/25/25 11:01 BP 122/72 05/25/25 11:01 Pulse Ox 98 05/25/25 11:01 Oxygen Delivery Method Room Air 05/25/25 11:01 BMI result Body Mass Index 26.5 Tobacco/Smoking Status: Tobacco use Status Tobacco use date assessed 05/25/25 05/25/25 11:15 Patient Tobacco Use Status Never used Tobacco 05/25/25 11:01 e-Cigarette/Vaping Use Never Used 05/25/25 11:01 Thrive Assessment: Date of Thrive Assessment Date Thrive assessed 05/25/25 05/25/25 11:15 Currently or been in a relationship where the following occur: No concerns reported Const General: no acute distress HENMT Head: Yes normal to inspection Face and sinus: Yes normal facial exam Throat: Yes posterior oropharynx normal Eyes General: appearance normal, both eyes and all related structures Neck Neck: Yes no lymphadenopathy and Yes supple Resp Effort & Inspection: normal respiratory effort Auscultation: clear to auscultation bilaterally Cardio Rhythm: regular rhythm Heart sounds: S1 normal heart sound present and S2 normal heart sound present GI Inspection: Yes normal to inspection Palpation (GI): Soft to palpation Percussion: Yes normal to percussion Auscultation: normal bowel sounds Coding Level of Care Code Est Pt Prev Care >65y(56221) Diagnoses Hyperlipidemia E78.5 HTN (hypertension) I10 Anxiety and depression F41.9; F32.9 Annual physical exam Z00.00 Assessment & Plan Assessment & Plan (1) Hyperlipidemia: Code(s): E78.5 - Hyperlipidemia, unspecified Category: Medical Plan: Continue current medications (2) HTN (hypertension): Code(s): I10 - Essential (primary) hypertension Category: Medical Plan: Continue lisinopril (3) Anxiety and depression: Code(s): F41.9 - Anxiety disorder, unspecified; F32.9 - Major depressive disorder, single episode, unspecified Category: Medical Plan: Continue fluoxetine (4) Annual physical exam: Code(s): Z00.00 - Encounter for general adult medical examination without abnormal findings Category: Medical Plan: Well-balanced diet regular physical activity discussed with the patient she is up-to-date with the mammogram had negative Cologuard in September 2024 Orders: Orders Comprehensive [place]. Panel Fast 4 Months E78.5 - Hyperlipidemia, unspecified, I10 - Essential (primary) hypertension Lipid Panel 4 Months E78.5 - Hyperlipidemia, unspecified
== END 2025-05-25 12:33 | disposition home or self-care (01) ==
PROVIDERS: PCP Internal Medicine; Visit Provider Internal Medicine
DX: Z00.00 Encounter for general adult medical examination without abnormal findings (principal); E78.5 Hyperlipidemia, unspecified; I10 Essential (primary) hypertension; F41.9 Anxiety disorder, unspecified; F32.9 Major depressive disorder, single episode, unspecified

== ENCOUNTER → 2025-05-25 11:00 | Outpatient (BNVA) | payer MEDICARE, OTHER, SELFPAY | PROVIDERS: PCP Internal Medicine; Visit Provider Internal Medicine | DX: Z00.00 Encounter for general adult medical examination without abnormal findings (principal); E78.5 Hyperlipidemia, unspecified; I10 Essential (primary) hypertension; F41.9 Anxiety disorder, unspecified; F32.9 Major depressive disorder, single episode, unspecified | CPT/HCPCS: 99397 ==